=== PATIENT | female | born 1980 | race Caucasian/White ===

== ENCOUNTER → 2020-06-26 17:16 | Outpatient (CLI) | payer BC, SELFPAY ==
[2020-06-26 18:10] LABS: Basophils # 0.1 K/mm3 (0-0.2); Basophils % 1.2 % (0.1-2.0); Eosinophils # 0.1 K/mm3 (0.0-0.4); Eosinophils % 1.5 % (0.1-12.0); Hemoglobin 14.5 g/dL (12.2-16.2); Lymphocytes # 1.7 K/mm3 (0.7-4.5); Lymphocytes % 29.5 % (10-50); Mean Corpuscular HGB Conc 32.3 g/dL (31.8-35.4); Mean Corpuscular Hemoglobin 31.2 pg (27.0-31.2); Mean Corpuscular Volume 96.6 fl (81-99); Mean Platelet Volume 7.8 fl (7.4-10.4); Monocytes # 0.3 K/mm3 (0.1-1.0); Monocytes % 5.7 % (1.7-9.3); Neutrophils # 3.5 K/mm3 (1.8-7.8); Neutrophils % 62.1 % (37.0-80.0); Platelet Count 264 K/mm3 (142-424); Red Blood Count 4.66 M/mm3 (4.20-5.40); Red Cell Distribution Width 12.6 % (11.5-17.5); White Blood Count 5.7 K/mm3 (4.8-10.8)
[2020-06-26 19:00] LABS: Chloride 105 mmol/L (98-107); Sodium 139 mmol/L (136-145)
[2020-06-26 19:03] LABS: Alanine Aminotransferase 13 U/L (12-78); Albumin Level 4.3 g/dl (3.5-5.0); Albumin/Globulin Ratio 1.6 (1.1-1.8); Alkaline Phosphatase 65 U/L (38-126); Aspartate Amino Transferase 24 U/L (14-36); Bilirubin,Total 0.8 mg/dl (0.2-1.3); Blood Urea Nitrogen 8 mg/dl (7-17); Carbon Dioxide 28 mmol/L (22.0-30.0); Cholesterol 207 mg/dl (140-200); Estimated Glomerular Filt Rate 94 ml/min (>60); GFR (African American) 113 ML/MIN (>60); Globulin 2.7 g/dL (1.3-3.2); Triglycerides 63 mg/dl (30-150); VLDL Cholesterol 13 mg/dL (0-40)
[2020-06-26 19:04] LABS: Calcium 9.2 mg/dl (8.4-10.2); Glucose 69 mg/dl (74-100); HDL Cholesterol 68 mg/dl (40-60)
[2020-06-26 19:14] LABS: Direct LDL Cholesterol 105.93 mg/dL (100-129)
[2020-06-26 19:21] LABS: T4 (Thyroxine) 7.7 ug/dl (5.53-11.0)
[2020-06-26 19:35] LABS: Thyroid Stimulating Hormone 2.34 uIU/mL (0.465-4.68)
== END ==
PROVIDERS: Visit Provider Family Medicine
DX: R51.9 Headache, unspecified (principal); Z79.899 Other long term (current) drug therapy
CPT/HCPCS: 80053; 80061; 84436; 84443; 85025

== ENCOUNTER → 2020-09-10 09:52 | Outpatient (POV) | payer BC, SELFPAY ==
[2020-09-10 10:10] VITALS: BP 134/74; PULSE 76; RESP 16; O2SAT 100; BMI 24.5
--- NOTE | 2020-09-10 12:48 | P.CONS_ITS ---
Assessment and Plan (1) Occipital neuralgia of right side Status: Chronic Category: Medical Code(s): M54.81 - Occipital neuralgia - Assessment and plan all Dx Assessment and Plan for all problems:: We will schedule a right occipital nerve block. We will also discontinue her Elavil and start her on gabapentin 100 mg up to 3 times per day. I will follow- up with her after her injection reassess her symptoms at that time she is been i nstructed to call the office if she has any issues prior to her next appointment. Dr. Roman has reviewed this note and agrees with this plan of care. This note was dictated using voice recognition software and may contain errors or omissions HPI - Data of Consult Consult date: 09/10/20 Requesting Physician: Melissa Lara APRN Primary Care Provider: Leroy Clements APRN - Consult Narrative Reason for consult: Occipital neuralgia History of present illness: Ms. Ayala is a 40 year old female who presents today for consultation regards to her right-sided occipital neuralgia. Patient was seen by Dr. Sherwood was started on Elavil however she is having side effects to this. Patient has had this pain for 2 to 3 months. Patient rates it a 4 out of 10. She has a shocklike headache radiating from her right occiput. Patient I discussed medication change along with potential nerve blocks and she is agreeable. CC: Melissa Lara APRN [facility] History I have reviewed the patient's past medical history: Yes Medical History: Reports:: Cancer (cervical) *Have you ever received a pneumonia vaccine?: No *Have you received a flu vaccine this season?: Yes Other Surgeries: Yes: , Other - *Social History Smoking Status: Never smoker Alcohol Intake: never Substance Use Type: denies use *Occupational Status:: employed *Travel in the last 8 weeks: None Family Hx:: Unable to obtain Review of Systems - Review of Systems ROS General: no recent weight change, no fever, no sleep disturbances Respiratory: no cough, no shortness of air, no recurring pulmonary infections Cardiovascular/Peripheral Vascular: No chest pain, No palpitations, no edema, no shortness of breath. Gastrointestinal: no new onset incontinence, normal bowel movements reported Genitourinary: no new onset incontinence Musculoskeletal: Right-sided headaches Psychiatric: normal mood/ affect, Neurological: [denies new onset weakness in extremities], [denies new onset balance issues] Meds Home Medications Medication Instructions Recorded Confirmed Type amitriptyline 10 mg tablet 10 mg PO HS #30 tab 09/03/20 09/03/20 Rx Allergies Allergy/AdvReac Type Severity Reaction Status Date / Time No Known Allergies Allergy Verified 09/03/20 12:51 Objective Vital signs: Pulse Resp BP Pulse Ox 76 16 134/74 100 09/10/20 10:10 09/10/20 10:10 09/10/20 10:10 09/10/20 10:10 Narrative: Physical Exam General: Alert and oriented x3, no acute distress, pleasant and cooperative, [on room air] Lungs: Resps E/U, Symmetrical chest expansion, Eyes: PERRL Musculoskeletal: Tenderness noted with palpation to the right occiput, deep tendon reflexes normal, strength in upper and lower extremities [5/5], gait noted Neurological: speech clear, car electronics installer equal, no gross s
== END ==
PROVIDERS: PCP Nurse Practitioner Family; Visit Provider Clinical Nurse Specialist Family Health
DX: M54.81 Occipital neuralgia (principal)
CPT/HCPCS: 99202; G0463

== ENCOUNTER 2020-09-21 10:37 | Day surgery (SDC) | payer BC, SELFPAY ==
[2020-09-21 10:48] VITALS: BP 136/76; PULSE 79; RESP 18; TEMP 36.6; O2SAT 98; BMI 23.8
[2020-09-21 11:21] VITALS: BP 148/74; PULSE 94; RESP 18; O2SAT 99
[2020-09-21 11:23] VITALS: BP 148/74; PULSE 94; RESP 18; O2SAT 99
--- NOTE | 2020-09-21 11:26 | HMH.PMPROC ---
- Procedure Date: 09/21/20 Time: 11:26 Anesthesiologist:: Travis Roman MD Complications:: None Pre-procedure Diagnosis:: Occipital neuralgia Post-procedure Diagnosis:: Same Indications for Procedure:: Patient is a pleasant 40-year-old white female who we have been treating for right-sided occipital neuralgia. She was referred by Dr. Noonan. She has failed all medical management. She has pain in the distribution of the right greater and lesser occipital nerves. We will do a right occipital nerve block today to see if this helps with her pain symptoms. Procedure Details:: Right occipital nerve block Informed consent was obtained risk and benefits of the procedure were explained to the patient. Patient was taken the procedure room. The right occiput was cleansed using alcohol swabs. A 25-gauge needle was used and we injected 10 mL bupivacaine 0.25% and Depo-Medrol 40 mg into the distribution of the right greater and lesser occipital nerves. Patient tolerated procedure well with no complications. Plan and Disposition:: We will follow-up with this patient 2 weeks. Will reevaluate symptoms at that time.
[2020-09-21 11:35] VITALS: BP 119/53; PULSE 78; RESP 18; O2SAT 98
== END 2020-09-21 11:35 | disposition home or self-care (01) ==
LOC: SC.PAINP 10:37
PROVIDERS: PCP Nurse Practitioner Family; Visit Provider Anesthesiology
DX: M54.81 Occipital neuralgia (principal); F41.9 Anxiety disorder, unspecified
CPT/HCPCS: 64405; J1040

== ENCOUNTER → 2020-10-15 11:08 | Outpatient (POV) | payer BC, SELFPAY ==
[2020-10-15 11:25] VITALS: BP 117/80; PULSE 71; RESP 18; O2SAT 100; BMI 23.6
--- NOTE | 2020-10-15 12:51 | HMH.PAINSOAP ---
[facility] Pain Management SOAP Note Subjective:: Patient is a 40-year-old white female who presents today for follow-up after an occipital nerve block. She has been treated for right-sided occipital neuralgia. Patient says that she is doing well since her injection. Her pain is a 2 out of 10. She does say the day of the injection, however, she had loss of voice along with shortness of breath. She says that she felt as though her throat was closing off . She says this lasted for about 10 to 15 minutes. She does say that the symptoms subsided. For 3 days, her pain worsened to her right neck area. After the third day, her pain did improve. Today, she is doing well. She reports that she was recently told she is and does not want to undergo any further injective therapy until further consultation with her [employer]. The patient says she does have a history of miscarriage. Review of Systems General: No recent weight changes, no fever, no sleep disturbances Respiratory: No cough, no shortness of air, no recurring pulmonary infections Cardiovascular/peripheral vascular: No chest pain, no palpitations, no edema, no shortness of breath Gastrointestinal: No new onset incontinence, normal bowel movements reported Genitourinary: No new onset incontinence Musculoskeletal: No pain at this time Psychiatric: Normal mood/affect Neurological: [Denies weakness in extremities], [denies balance issues] Objective:: Physical exam General: Alert and oriented x3, no acute distress, pleasant and cooperative, [on room air] Lungs: Respirations even and unlabored, symmetrical chest expansion Eyes: PERRL Musculoskeletal: Flexion and extension of [] cervical spine somewhat guarded secondary to pain, deep tendon reflexes normal, strength in upper and lower extremities [5/5], normal gait noted Neurological: Speech clear, poultry raiser equal, no gross sensory deficit Assessment:: Occipital neuralgia right side Plan:: We will schedule the patient for a 3-month follow-up. She is doing well overall since her injection. She has been instructed to contact clinic if she has any concerns for next month. [facility] History I have reviewed the patient's past medical history: Yes Medical History: Denies:: Cancer, Diabetes Mellitus Type 1, Diabetes Mellitus Type 2, MRSA, Seizures *Have you ever received a pneumonia vaccine?: No *Have you received a flu vaccine this season?: Yes Other Medical History: Denies: Blood Transfusion Reaction Other Surgeries: Yes: , Other Amputation: No Fractures: No - *Social History Smoking Status: Never smoker Alcohol Intake: never Substance Use Type: denies use *Occupational Status:: employed Housing: house Household Members: spouse *Travel in the last 8 weeks: None Family Hx:: Unable to obtain
== END ==
PROVIDERS: PCP Family Medicine; Visit Provider Clinical Nurse Specialist Family Health
DX: M54.81 Occipital neuralgia (principal)
CPT/HCPCS: 99212; G0463

== ENCOUNTER → 2022-04-14 08:30 | Outpatient (CLI) | payer BC, SELFPAY ==
--- NOTE | 2022-04-14 08:38 | CT_ITS ---
FINAL REPORT TECHNIQUE: Axial CT images were performed from the lung bases through the pubic symphysis. Coronal reformats were submitted and reviewed. This study was performed with techniques to keep radiation doses as low as reasonably achievable (ALARA). Individualized dose reduction techniques using automated exposure control or adjustment of mA and/or kV according to the patient's size were employed. CLINICAL HISTORY: LLQ pain FINDINGS: Abdomen: There is mild bibasilar atelectasis or scarring. The gallbladder is present. The liver, spleen and pancreas are unremarkable. There are no adrenal masses. There is no nephrolithiasis. There is no hydronephrosis. Pelvis: The appendix is partially visualized and appears normal. There are no distal ureteral stones. The urinary bladder is unremarkable. There is a large amount of retained stool. IMPRESSION: Large amount of retained stool. Reviewed, Interpreted and Dictated by Jones Snowden III, MD Transcribed by Andre Maldonado Authenticated and [facility]
== END ==
PROVIDERS: PCP Family Medicine; Visit Provider Family Medicine
DX: R10.32 Left lower quadrant pain (principal)
CPT/HCPCS: 74176

== ENCOUNTER 2022-06-19 11:32 | Day surgery (SDC) | payer BC, SELFPAY ==
[2022-05-29 14:49] VITALS: BMI 24.3
[2022-06-19 11:58] VITALS: BP 130/77; PULSE 64; RESP 18; TEMP 37.1; O2SAT 99
[2022-06-19 12:03] LABS: Urine Pregnancy, HCG Qual. Negative (Negative)
[2022-06-19 13:02] VITALS: O2SAT 99
--- NOTE | 2022-06-19 13:04 | P.PN_ITS ---
[facility] Disclaimer: The information contained in this section may have been updated after the patient was seen, as this information can be updated by other users. Medical History Cervical cancer Constipation Surgical History H/O LEEP History of section Family History Other No significant family history Social History Smoking Status: Never smoker second hand exposure: No alcohol intake: never substance use type: denies use current occupational status: employed Travel in the last 8 weeks: None household members: spouse and children housing: house marital status: education level: college caffeine: Yes special linda needs: No agree to transfusion: No do you feel safe at home: Yes victim of physical abuse: No victim of emotional abuse: No victim of sexual abuse: No would you like helpful sources: No [facility] Anesthesia Checklist Patient Identification Patient Identification: Verbal (Name & ) Structural Data Admitted From: Home Planned Operative Procedure/s: colonoscopy Consent for Planned Operative Procedure(s) Verified: Yes Additional verifications Anesthesia Reactions: No Hx Blood Transfusions: No Blood Transfusion Reaction: No Airway Assessment C-Spine Mobility Assessed: Yes TMJ Mobility Assessed: Yes Dentition: Good Dentition Neurological Assessment Level of Consciousness: Awake, Alert and Appropriate Anesthesia Plan Anesthesia Risk discussed: Yes Anesthesia Plan: Verified ASA Class: II Anesthesia Type: MAC
--- NOTE | 2022-06-19 13:19 | HMH.SCOPE ---
Procedure: Date: 06/19/22 Patient Date of :: 1980 Procedure Performed:: Diagnostic colonoscopy Indications:: Recent Abdominal pain Performing Provider:: Zander Conway MD Referring Provider:: Bert Turpin Sedation:: Propofol Procedure:: After placing the patient in the left lateral decubitus position, the colonoscopy was gently inserted into the rectum and under direct visualization advanced to the cecum which was identified by transillumination in the right lower quadrant, identification of the ileocecal valve, appendiceal orifice, and cecal strap. Color, texture, mucosa, and anatomy of the colon were carefully examined with the scope. Findings:: Anal canal: normal Rectum: normal Sigmoid colon: normal without polyps or inflammatory changes Descending colon: normal without polyps or inflammatory changes Splenic flexure: normal Transverse colon: normal without polyps or inflammatory changes Hepatic flexure: normal Ascending colon: normal without polyps or inflammatory changes Cecum: normal Terminal ileum: not visualized Impression: Normal colonoscopy Recommendations:: Follow up examination in about Ten years or so, sooner if clinically indicated. Complications:: None Estimated blood obtained (mL): 0
[2022-06-19 13:22] VITALS: BP 113/62; PULSE 72; RESP 16; TEMP 36.4; O2SAT 96
[2022-06-19 13:32] VITALS: BP 112/66; PULSE 67; RESP 16; O2SAT 99
[2022-06-19 13:42] VITALS: BP 119/59; PULSE 78; RESP 18; O2SAT 99
[2022-06-19 13:51] VITALS: BP 120/73; PULSE 69; RESP 18; O2SAT 99
== END 2022-06-19 14:00 | disposition home or self-care (01) ==
PROVIDERS: PCP Family Medicine; Visit Provider Internal Medicine Gastroenterology
PROC: 0DJD8ZZ Inspection of Lower Intestinal Tract, Via Natural or Artificial Opening Endoscopic (ICD-10-PCS; CPT 45378; principal; 2022-06-19 13:00)
DX: R10.32 Left lower quadrant pain (principal)
CPT/HCPCS: 45378; 81025

== ENCOUNTER → 2022-09-01 23:22 | Outpatient (CLI) | payer BC, SELFPAY ==
[2022-09-03 16:13] LABS: Tissue Transglutaminase IgA Ab <2 U/mL (0-3)
== END ==
PROVIDERS: PCP Family Medicine; Visit Provider Family Medicine
DX: R10.9 Unspecified abdominal pain (principal)
CPT/HCPCS: 83516

== ENCOUNTER 2023-06-15 15:05 | Outpatient (CLI) | payer BC, SELFPAY ==
[2023-06-15 18:36] LABS: Basophils % 0.4 % (0.1-2.0); Eosinophils % 0.4 % (0.1-12.0); Hematocrit 44.6 % (37.0-47.0); Hemoglobin 14.5 g/dL (12.2-16.2); Lymphocytes # 1.3 K/mm3 (0.7-4.5); Lymphocytes % 17.8 % (10-50); Mean Corpuscular HGB Conc 32.6 g/dL (31.8-35.4); Mean Corpuscular Hemoglobin 32.3 pg (27.0-31.2); Mean Platelet Volume 9.7 fl (7.4-10.4); Monocytes # 0.3 K/mm3 (0.1-1.0); Monocytes % 4.8 % (1.7-9.3); Neutrophils # 5.4 K/mm3 (1.8-7.8); Neutrophils % 76.6 % (37.0-80.0); Platelet Count 292 K/mm3 (142-424); Red Blood Count 4.51 M/mm3 (4.20-5.40); Red Cell Distribution Width 12.8 % (11.5-17.5); White Blood Count 7.1 K/mm3 (4.8-10.8)
[2023-06-15 18:39] LABS: Chloride 107 mmol/L (98-107); Potassium 4.4 mmoL/L (3.5-5.1); Sodium 137 mmol/L (136-145)
[2023-06-15 18:42] LABS: Alanine Aminotransferase 26 U/L (12-78); Albumin Level 3.8 g/dl (3.5-5.0); Albumin/Globulin Ratio 1.5 (1.1-1.8); Alkaline Phosphatase 65 U/L (38-126); Anion Gap 0.4 mEq/L (5-15); Aspartate Amino Transferase 30 U/L (14-36); Bilirubin,Total 0.8 mg/dl (0.2-1.3); Blood Urea Nitrogen 10 mg/dl (7-17); Carbon Dioxide 34 mmol/L (22.0-30.0); Cholesterol 234 mg/dl (140-200); Estimated Glomerular Filt Rate 79 ml/min (>60); GFR (African American) 96 ML/MIN (>60); Globulin 2.6 g/dL (1.3-3.2); Total Protein,Serum 6.4 g/dl (6.3-8.2); Triglycerides 118 mg/dl (30-150); VLDL Cholesterol 24 mg/dL (0-40)
[2023-06-15 18:43] LABS: Calcium 8.8 mg/dl (8.4-10.2); Glucose 90 mg/dl (74-100); HDL Cholesterol 47 mg/dl (40-60)
[2023-06-15 18:53] LABS: Direct LDL Cholesterol 144.01 mg/dL (100-129)
== END 2023-06-15 23:59 ==
LOC: LAB.DROPOF 06-16 15:06
PROVIDERS: PCP Family Medicine; Visit Provider Family Medicine
DX: R10.32 Left lower quadrant pain (principal); Z79.899 Other long term (current) drug therapy
CPT/HCPCS: 80053; 80061; 85025